=== PATIENT | male | born 1965 | race Caucasian/White ===

== ENCOUNTER → 2018-06-10 08:01 | Outpatient (CLI) | payer OTHER, SELFPAY ==
--- NOTE | 2018-06-10 08:12 | RAD_ITS ---
STUDY: X-RAY - LUMBAR SPINE REASON FOR EXAM: Male, 53 years old. Palpable firm mass right lower lumbar spine TECHNIQUE: 5 view(s) of the lumbar spine were obtained. COMPARISON: None FINDINGS: Normal lumbar lordosis. There is mild dextrocurvature in the lumbar spine. There is a normal alignment of the vertebrae. There is multilevel endplate spondylosis of the lumbar vertebrae. There is multi-level degenerative disc disease with multi-level disc space narrowing. Hypertrophic facet changes are seen. There is no fracture. There is atherosclerotic calcification of the abdominal aorta without a demonstrated aneurysm. RAD/L/S Spine Min 4 Views IMPRESSION: Degenerative changes. No acute bony abnormality. Electronically Signed: Charles Gamboa DO at 9:55 EDT Tel , Service support ,
[2018-06-10 09:06] LABS: Absolute Lymphocyte Count 3.61 X10^3/ul (0.83-4.51); Absolute Neutrophil Count 3.6 X10^3/uL (2.0-7.7); Basophil# 0.03 X10^3/uL; Basophil% 0.4 % (0-1); Eosinophil# 0.15 X10^3/uL; Eosinophils% 1.8 % (0-5); Hematocrit 42.9 % (40-54); Hemoglobin 14.2 g/dl (13.0-16.5); Lymphocyte # 3.61 X10^3/ul (4.0); Lymphocyte % 44.3 % (19-41); Mean Corp Hgb Conc 33.1 g/gl (32-36); Mean Corpuscular Hgb 29.6 pg (27.0-32.0); Mean Corpuscular Volume 89.4 fL (80-94); Mean Platelet Vol. 9.5 fl (6.2-12.0); Monocyte% 8.6 % (0-10); Neutrophil # 3.64 X10^3/uL (2.7-7.7); Neutrophil % 44.7 % (47-70); Platelet Count 333 K/mm3 (150-450); RBC Distribution Width CV 13.2 % (11.6-14.6); White Blood Count 8.2 K/mm3 (4.4-11.0)
[2018-06-10 09:08] LABS: POSITIVE COUNT NO; POSITIVE DIFFERENTIAL NO; POSITIVE MORPHOLOGY NO
[2018-06-10 09:46] LABS: ALB/GLOB Ratio 1.1 RATIO (0.9-2.4); AST(SGOT) 25 U/L (15-37); Alanine Aminotransfer ALT/SGPT 38 U/L (16-61); Albumin, Serum 4.1 g/dL (3.2-5.0); Alkaline Phosphatase 54 U/L (45-117); Anion Gap 7 (5-15); BUN 26 mg/dL (7-18); BUN/Creat Ratio 22.6 RATIO (10-20); Calcium,Total 9.4 mg/dL (8.5-10.1); Chloride 109 mmol/L (98-107); Cholesterol 175 mg/dL (200); Creatinine, Serum 1.15 mg/dL (0.70-1.30); EST Glomerular Filtration Rate 71 mL/min (>60); Est Glom Filt Rate - Afr Amer 86 mL/min (>60); Globulin 3.6 g/dL (2.2-4.2); Glucose 78 mg/dL (74-106); High Density Lipoprotein 46 mg/dL; PSA,Total - Annual Screen 0.78 ng/mL (0.00-4.00); Potassium 3.6 mmol/L (3.5-5.1); Protein, Total 7.7 g/dL (6.4-8.2); Sodium Level 145 mmol/L (136-145); Triglycerides 111 mg/dL; Very Low Density Lipoprotein 22 mg/dL (5-40)
== END ==
PROVIDERS: Family Provider Family Medicine; PCP Family Medicine; Visit Provider Family Medicine
DX: Z00.01 Encounter for general adult medical examination with abnormal findings (principal); E78.5 Hyperlipidemia, unspecified; Z12.5 Encounter for screening for malignant neoplasm of prostate; R22.2 Localized swelling, mass and lump, trunk
CPT/HCPCS: 36415; 72110; 80053; 80061; 84153; 85025; G0103

== ENCOUNTER → 2018-06-11 12:58 | Outpatient (CLI) | payer OTHER, SELFPAY ==
--- NOTE | 2018-06-11 13:05 | CDU_ITS ---
Reason For Study: hyperlipidemia, E78.5, I77.9 Rt. Velocities/BP Lt. Velocities/BP Prox CCA 104/22.9 cm/sec. Prox CCA 125/27.6 cm/sec. Mid CCA 102/26.4 cm/sec. Mid CCA 105/26.4 cm/sec. Dist CCA 95.6/22.9 cm/sec. Dist CCA 104/28.1 cm/sec. Prox ICA 60.4/21.7 cm/sec. Prox ICA 55.1/22.3 cm/sec. Mid ICA 78.0/29.9 cm/sec. Mid ICA 73.9/28.1 cm/sec. Dist ICA 78.6/32.2 cm/sec. Dist ICA 66.3/28.1 cm/sec. Rt. ICA/CCA = .8. Lt. ICA/CCA = .7. Prox ECA 113/19.9 cm/sec. Prox ECA 90.9/24.6 cm/sec. Rt. Vert. 52.2/18.8 cm/sec. Lt. Vert. 45.7/15.8 cm/sec. Right Extracranial There is intimal thickening but no significant atherosclerotic plaque noted in the right common carotid artery. There is intimal thickening but no significant atherosclerotic plaque noted in the right internal carotid artery. There is intimal thickening but no significant atherosclerotic plaque noted in the right external carotid artery. Antegrade flow is noted in the right vertebral artery. Left Extracranial There is intimal thickening but no significant atherosclerotic plaque noted in the left common carotid artery. There is intimal thickening but no significant atherosclerotic plaque noted in the left internal carotid artery. There is intimal thickening but no significant atherosclerotic plaque noted in the left external carotid artery. Antegrade flow is noted in the left vertebral artery. Procedure Carotid Duplex [id number]. The exam was diagnostic. Exam performed in department. Interpretation Summary No significant atherosclerotic plaque or stenosis noted in the internal carotid arteries bilaterally. Flow within the vertebral arteries is antegrade bilaterally. Ordering Physician: Marcelino Barclay Performed By: Nino Rudd RVT
== END ==
PROVIDERS: Family Provider Family Medicine; PCP Family Medicine; Visit Provider Family Medicine
DX: I77.9 Disorder of arteries and arterioles, unspecified (principal); E78.5 Hyperlipidemia, unspecified
CPT/HCPCS: 93880

== ENCOUNTER → 2018-07-02 16:18 | Outpatient (CLI) | payer OTHER, SELFPAY | PROVIDERS: Family Provider Family Medicine; PCP Family Medicine; Visit Provider Family Medicine | DX: R22.2 Localized swelling, mass and lump, trunk (principal) | CPT/HCPCS: 76882 ==

== ENCOUNTER → 2019-11-05 10:25 | Outpatient (CLI) | payer OTHER, SELFPAY ==
[2019-11-05 12:46] LABS: Absolute Lymphocyte Count 2.81 X10^3/uL (0.83-4.51); Absolute Neutrophil Count 2.8 X10^3/uL (2.0-7.7); Basophil# 0.03 X10^3/uL; Basophil% 0.5 % (0-1); Eosinophil# 0.19 X10^3/uL; Hematocrit 42.6 % (40-54); Hemoglobin 13.7 g/dL (13.0-16.5); Lymphocyte # 2.81 X10^3/ul (4.0); Lymphocyte % 44.6 % (19-41); Mean Corp Hgb Conc 32.2 g/dL (32-36); Mean Corpuscular Volume 90.3 fL (80-94); Mean Platelet Vol. 9.6 fl (6.2-12.0); Monocyte# 0.47 X10^3/uL; Monocyte% 7.5 % (0-10); NRBC Flagged by Analyzer 0 % (0-5); Neutrophil # 2.78 X10^3/uL (2.7-7.7); Neutrophil % 44.1 % (47-70); Platelet Count 330 K/mm3 (150-450); RBC Distribution Width SD 42.4 fl (35.1-43.9); Red Blood Count 4.72 M/mm3 (4.6-6.2); White Blood Count 6.3 K/mm3 (4.4-11.0)
[2019-11-05 13:08] LABS: ALB/GLOB Ratio 1.1 RATIO (0.9-2.4); AST(SGOT) 22 U/L (15-37); Alanine Aminotransfer ALT/SGPT 44 U/L (16-61); Alkaline Phosphatase 51 U/L (45-117); Anion Gap 7 (5-15); BUN 19 mg/dL (7-18); BUN/Creat Ratio 17.6 RATIO (10-20); Chloride 109 mmol/L (98-107); Cholesterol 172 mg/dL (200); Creatinine, Serum 1.08 mg/dL (0.70-1.30); EST Glomerular Filtration Rate 76 mL/min (>60); Est Glom Filt Rate - Afr Amer 91 mL/min (>60); Globulin 3.5 g/dL (2.2-4.2); Glucose 88 mg/dL (74-106); High Density Lipoprotein 48 mg/dL; PSA,Total - Annual Screen 0.83 ng/mL (0.00-4.00); Potassium 3.5 mmol/L (3.5-5.1); Protein, Total 7.5 g/dL (6.4-8.2); Sodium Level 142 mmol/L (136-145); Triglycerides 96 mg/dL; Very Low Density Lipoprotein 19 mg/dL (5-40)
== END ==
PROVIDERS: Family Provider Family Medicine; PCP Family Medicine; Visit Provider Family Medicine
DX: Z00.00 Encounter for general adult medical examination without abnormal findings (principal); Z12.5 Encounter for screening for malignant neoplasm of prostate
CPT/HCPCS: 36415; 80053; 80061; 84153; 85025; G0103

== ENCOUNTER → 2021-04-09 10:34 | Outpatient (CLI) | payer OTHER, SELFPAY ==
[2017-06-16 07:13] VITALS: BMI 23.3
[2021-04-09 12:35] LABS: Absolute Lymphocyte Count 2.35 X10^3/uL (0.83-4.51); Absolute Neutrophil Count 2.5 X10^3/uL (2.0-7.7); Basophil# 0.04 X10^3/uL; Basophil% 0.7 % (0-1); Eosinophil# 0.11 X10^3/uL; Hematocrit 42.3 % (40-54); Hemoglobin 13.5 g/dL (13.0-16.5); Lymphocyte # 2.35 X10^3/ul (0.83-4.51); Mean Corp Hgb Conc 31.9 g/dL (32-36); Mean Corpuscular Hgb 29.2 pg (27.0-32.0); Mean Corpuscular Volume 91.4 fL (80-94); Mean Platelet Vol. 9.4 fl (6.2-12.0); Monocyte# 0.48 X10^3/uL; Monocyte% 8.8 % (0-10); NRBC Flagged by Analyzer 0 % (0-5); Neutrophil # 2.47 X10^3/uL (2.7-7.7); Neutrophil % 45.3 % (47-70); Platelet Count 343 K/mm3 (150-450); RBC Distribution Width SD 43.1 fl (35.1-43.9); Red Blood Count 4.63 M/mm3 (4.6-6.2); White Blood Count 5.5 K/mm3 (4.4-11.0)
[2021-04-09 12:55] LABS: ALB/GLOB Ratio 1.1 RATIO (0.9-2.4); AST(SGOT) 19 U/L (15-37); Alanine Aminotransfer ALT/SGPT 30 U/L (16-61); Albumin, Serum 3.8 g/dL (3.2-5.0); Alkaline Phosphatase 61 U/L (45-117); Anion Gap 9 (5-15); BUN 20 mg/dL (7-18); Calcium,Total 8.9 mg/dL (8.5-10.1); Chloride 107 mmol/L (98-107); Cholesterol 149 mg/dL (200); Creatinine, Serum 0.95 mg/dL (0.70-1.30); EST Glomerular Filtration Rate 87 mL/min (>60); Est Glom Filt Rate - Afr Amer 105 mL/min (>60); Globulin 3.4 g/dL (2.2-4.2); Glucose 90 mg/dL (74-106); High Density Lipoprotein 46 mg/dL; PSA,Total - Annual Screen 0.95 ng/mL (0.00-4.00); Potassium 3.8 mmol/L (3.5-5.1); Protein, Total 7.2 g/dL (6.4-8.2); Sodium Level 143 mmol/L (136-145); Triglycerides 64 mg/dL; Very Low Density Lipoprotein 13 mg/dL (5-40)
== END ==
PROVIDERS: PCP Family Medicine; Referring Provider Family Medicine; Visit Provider Family Medicine
DX: Z00.00 Encounter for general adult medical examination without abnormal findings (principal); Z12.5 Encounter for screening for malignant neoplasm of prostate
CPT/HCPCS: 36415; 80053; 80061; 84153; 85025; G0103

== ENCOUNTER → 2022-04-18 | Outpatient (CLI) | payer OTHER, SELFPAY ==
[2022-04-18 12:23] LABS: Absolute Lymphocyte Count 2.33 X10^3/uL (0.83-4.51); Basophil# 0.04 X10^3/uL; Basophil% 0.7 % (0-1); Eosinophil# 0.12 X10^3/uL; Hematocrit 43.7 % (40-54); Hemoglobin 14.1 g/dL (13.0-16.5); Lymphocyte # 2.33 X10^3/ul (0.83-4.51); Lymphocyte % 38.4 % (19-41); Mean Corp Hgb Conc 32.3 g/dL (32-36); Mean Corpuscular Hgb 29.3 pg (27.0-32.0); Mean Corpuscular Volume 90.9 fL (80-94); Mean Platelet Vol. 8.9 fl (6.2-12.0); Monocyte# 0.62 X10^3/uL; Monocyte% 10.2 % (0-10); NRBC Flagged by Analyzer 0 % (0-5); Neutrophil # 2.95 X10^3/uL (2.7-7.7); Neutrophil % 48.5 % (47-70); Platelet Count 300 K/mm3 (150-450); RBC Distribution Width CV 12.9 % (11.6-14.6); RBC Distribution Width SD 42.6 fl (35.1-43.9); Red Blood Count 4.81 M/mm3 (4.6-6.2); White Blood Count 6.1 K/mm3 (4.4-11.0)
[2022-04-18 12:44] LABS: ALB/GLOB Ratio 1.2 RATIO (0.9-2.4); AST(SGOT) 29 U/L (15-37); Alanine Aminotransfer ALT/SGPT 48 U/L (16-61); Albumin, Serum 4.2 g/dL (3.2-5.0); Alkaline Phosphatase 58 U/L (45-117); Anion Gap 5 (5-15); BUN 23 mg/dL (7-18); BUN/Creat Ratio 23.4 RATIO (10-20); Calcium,Total 9.3 mg/dL (8.5-10.1); Chloride 107 mmol/L (98-107); Cholesterol 181 mg/dL (200); Creatinine, Serum 0.98 mg/dL (0.70-1.30); EST Glomerular Filtration Rate 83 mL/min (>60); Est Glom Filt Rate - Afr Amer 101 mL/min (>60); Globulin 3.6 g/dL (2.2-4.2); Glucose 92 mg/dL (74-106); High Density Lipoprotein 47 mg/dL; Protein, Total 7.8 g/dL (6.4-8.2); Sodium Level 139 mmol/L (136-145); Triglycerides 68 mg/dL; Very Low Density Lipoprotein 14 mg/dL (5-40)
== END | disposition home or self-care (01) ==
LOC: MTLAB 10:18
PROVIDERS: PCP Family Medicine; Referring Provider Family Medicine; Visit Provider Family Medicine
DX: Z00.00 Encounter for general adult medical examination without abnormal findings (principal); Z12.5 Encounter for screening for malignant neoplasm of prostate
CPT/HCPCS: 36415; 80053; 80061; 84153; 85025; G0103

== ENCOUNTER 2023-05-20 13:14 | Emergency (ER) | payer OTHER, SELFPAY ==
[2023-05-20] VITALS (7 sets, daily range): BP systolic 79–156; BP diastolic 44–84; PULSE 46–74; RESP 14–16; TEMP 36.6; O2SAT 97–99; BMI 23.7
--- NOTE | 2023-05-20 13:30 | EKG12_ITS ---
Test Reason : Blood Pressure : / mmHG Vent. Rate : 047 BPM Atrial Rate : 047 BPM P-R Int : 158 ms QRS Dur : 082 ms QT Int : 412 ms P-R-T Axes : 062 063 035 degrees QTc Int : 364 ms Sinus bradycardia Otherwise normal ECG When compared with ECG of 20-MAY-2023 13:22, MANUAL COMPARISON REQUIRED, DATA IS UNCONFIRMED Confirmed by GUILLAUME AL, GEORGE ([id number]), communications editor JOELLE HAYWARD ([id number]) on 05/27/2023 7:31:53 AM Referred By: Confirmed By:GEORGE GALAVIZ MD
[2023-05-20 13:54] LABS: Absolute Lymphocyte Count 3.69 X10^3/uL (0.83-4.51); Absolute Neutrophil Count 2.5 X10^3/uL (2.0-7.7); Basophil# 0.05 X10^3/uL; Basophil% 0.7 % (0-1); Eosinophil# 0.17 X10^3/uL; Eosinophils% 2.4 % (0-5); Hematocrit 43.5 % (40-54); Hemoglobin 14.4 g/dL (13.0-16.5); Lymphocyte # 3.69 X10^3/ul (0.83-4.51); Lymphocyte % 52.5 % (19-41); Mean Corp Hgb Conc 33.1 g/dL (32-36); Mean Corpuscular Hgb 29.7 pg (27.0-32.0); Mean Corpuscular Volume 89.7 fL (80-94); Mean Platelet Vol. 9.4 fl (6.2-12.0); Monocyte# 0.64 X10^3/uL; Monocyte% 9.1 % (0-10); NRBC Flagged by Analyzer 0 % (0-5); Neutrophil # 2.46 X10^3/uL (2.7-7.7); Platelet Count 350 K/mm3 (150-450); RBC Distribution Width CV 12.9 % (11.6-14.6); RBC Distribution Width SD 42.4 fl (35.1-43.9); Red Blood Count 4.85 M/mm3 (4.6-6.2)
[2023-05-20] MEDS: Aspirin 81 MG TAB.CHEW 324 MG PO (13:59)
--- NOTE | 2023-05-20 13:59 | CT_ITS ---
EXAM: CT ANGIOGRAPHY CHEST, ABDOMEN AND PELVIS WITH INTRAVENOUS CONTRAST CLINICAL INDICATION: chest pain radiating into left arm, diaphoretic TECHNIQUE: Helically acquired angiography images were obtained of the chest, abdomen and pelvis with intravenous contrast. This CT exam was performed using one or more of the following dose reduction techniques: automated exposure control, adjustment of the mA and/or kV according to patient size, and/or use of iterative reconstruction technique. MIP reconstructed images were created and reviewed. CONTRAST: IV 100mL Isovue-370 RADIATION DOSE: CTDIvol = 12.77 mGy, DLP = 758.35 mGy-cm COMPARISON: No relevant prior studies available. FINDINGS: VASCULATURE: AORTA: There is atherosclerotic calcification of the aortic arch with tortuosity and elongation of the aortic arch and descending thoracic aorta. There are calcifications of the abdominal aorta. This is consistent for atherosclerotic disease. There is no abdominal aortic aneurysm. No dissection. PULMONARY ARTERIES: Unremarkable. No demonstrated pulmonary embolism or arterial dissection. GREAT VESSELS OF AORTIC ARCH: See above. CELIAC TRUNK AND MESENTERIC ARTERIES: Celiac and superior mesenteric arteries: No demonstrated narrowing. Inferior mesenteric artery: No demonstrated narrowing. No dissection. RENAL ARTERIES: Right renal artery(arteries): No demonstrated narrowing. Left renal artery(arteries): No demonstrated narrowing. No dissection. ILIAC ARTERIES: Right common iliac artery: No demonstrated narrowing. Right external iliac artery: No demonstrated narrowing. Right internal iliac artery: No demonstrated narrowing. Left common iliac artery: No demonstrated narrowing. Left external iliac artery: No demonstrated narrowing. Left internal iliac artery: No demonstrated narrowing. No dissection. CHEST: LUNGS AND PLEURAL SPACES: Unremarkable. No mass. No consolidation or edema. No pleural effusion or thickening. No pneumothorax. HEART: There are calcifications of the coronary arteries. Heart size is normal. No pericardial effusion. MEDIASTINUM: Unremarkable. No mediastinal or hilar adenopathy. Esophagus is unremarkable. No hiatal hernia. THYROID: Unremarkable. No thyroid lesions. ABDOMEN: LIVER: Normal liver. GALLBLADDER AND BILE DUCTS: Unremarkable. No calcified gallstones. No gallbladder distention or wall edema. No intra- or extrahepatic biliary ductal dilation. Normal gallbladder and extrahepatic biliary system. PANCREAS: Unremarkable. No focal cystic or solid mass. Normal pancreas. SPLEEN: Unremarkable. Normal spleen. ADRENALS: Unremarkable. Normal bilateral adrenal glands. KIDNEYS AND URETERS: Unremarkable. Normal renal size and position. No hydronephrosis. No acute findings of the right kidney. No acute findings of the left kidney. STOMACH AND BOWEL: Stool throughout the colon. No stomach or bowel distention. No focal inflammatory change. Normal visualized stomach. Normal small intestine. PELVIS: APPENDIX: There is non-visualization of the appendix. BLADDER: Unremarkable. Normal urinary bladder. REPRODUCTIVE: There is enlargement of the prostate gland. CHEST, ABDOMEN and PELVIS: INTRAPERITONEAL SPACE: Unremarkable. No ascites or other fluid collection. No free air. BONES/JOINTS: There are degenerative changes of the shoulders. There are diffuse degenerative changes of the visualized lumbar spine. There is bilateral neural foraminal stenosis at L4-5 and L5-S1. No suspicious lytic or blastic abnormality. SOFT TISSUES: There is an umbilical hernia containing fat. LYMPH NODES: Unremarkable. No enlarged lymph nodes. OTHER FINDINGS: 100 cc of IV. Post-processing of the angiographic images was performed, with axial imaging and 3D reconstruction. MIPS images were obtained. CT/CTA Chst, Abd, Pel W and/or WO IMPRESSION: 1. No demonstrated pulmonary embolism or arterial dissection. 2. There are calcifications of the coronary arteries. Electronically Signed: Richi German MD at 15:04 EDT ,
--- NOTE | 2023-05-20 14:00 | ED.RN ---
RN called to pt's room, pt stating I don't feel right. Pt color pale and ashen, heart rate and blood pressure low. MD notified and at bedside. repeat EKG performed, fluids hung on pressure bag. Pt's vital signs returning to baseline after approx 10-15 min.
--- NOTE | 2023-05-20 14:01 | EDS_ITS ---
HPI History of Present Illness Chief Complaint: Chest Pain Narrative Narrative: Patient is a 58-year-old male who is presenting to the ER with chief complaint of left upper chest pain/tightness that started 2 hours prior to arrival. Patient was at home with family and his grandson. Patient bent down to pick up man his young grandson, and he had a ringing in his right ear as well. Patient was home with his . Patient is very physically fit, he is a high school physical education teacher. Patient does take cholesterol medication. Patient has no cardiac history. Patient is never been a smoker, no cocaine use, only past medical history is cholesterol. No family history at early age of cardiac events. No recent traveling, no trauma, no heavy lifting. Patient's symptoms were rated a 2 or 3/10, and it would only last anywhere from 20 to 30 seconds. It would radiate to his left upper shoulder as well. Patient came into the ER. Patient's and [id number] are at bedside. Patient's [id number] is a nurse as well. Patient is never had a stress test, echocardiogram, or any other advanced testing. Patient was placed in room 20. Initial EKG that was done at 1322 showed no acute findings. Patient had orders placed by myself, I was in another room talking to a patient when nursing staff had pulled me out of the room at approximately 1340 and stated that patient is diaphoretic, hypotensive, bradycardic, does not look well. Second EKG was being done. Patient does admit to being very anxious with subtle things, being OCD and admits to panic attacks as well. When I came into the room, diaphoresis was slightly improving. However patient was still hypotensive with a pressure of the 60s over 40s, heart rate was in the 60s. Patient was given a liter with a pressure bag by nursing staff. Patient's pain was subsiding. Questionable whether patient vasovagal or not. Patient denies any heavy lifting, twisting or turning, no trauma, no other acute complaints. [facility] Medical History (Updated 05/20/23 @ 16:[address] Erick Borrero, ) Hyperlipemia Home Medications fenofibric acid (choline) 135 mg capsule,delayed release (Trilipix) 135 mg PO QHS 06/12/17 [History Last Taken Unknown] simvastatin 20 mg tablet 20 mg PO DAILY 06/12/17 [History Last Taken Unknown] Allergy/AdvReac Type Severity Reaction Status Date / Time Penicillins Allergy Hives Verified 05/20/23 13:17 Social History Smoking Status: Never smoker ROS ROS ED ROS Narrative REVIEW OF SYSTEMS: Unless otherwise stated in this report the patient's positive and negative responses for review of systems for constitutional, eyes, ENT, cardiovascular, respiratory, gastrointestinal, neurological, , musculoskeletal, and integument systems and related systems to the presenting problem are either stated in the history of present illness or were not pertinent or were negative for the symptoms and/or complaints related to the presenting medical problem. EXAM Physical Exam Narrative Exam Narrative: Vital signs reviewed and patient is not hypoxic. This physical exam was done when I initially saw the patient during a possible vasovagal episode. Patient is currently denying any type of pain, shortness of breath or pressure at this time. General: The patient appears slightly anxious and in no apparent distress. Patient is resting uncomfortably on cart. Not toxic, lethargic, or listless. Skin: Warm, diaphoretic, no pallor noted. There is no rash noted. Head: Normocephalic, atraumatic Eye: Normal conjunctiva, no drainage, EOMI. PERRL. Ears, Nose, Mouth, and Throat: oral mucosa is moist. Nares patent. Mouth without vesicles. Cardiovascular: Regular Rate and Rhythm, no murmurs, gallops, or rubs. No reproducible tenderness to palpation to the anterior lateral chest wall or over left anterior chest wall. Respiratory: Patient is in no distress, no accessory muscle use, lungs are clear to auscultation, no wheezing, rales or rhonchi Back: non-tender, no CVA tenderness bilaterally to percussion. NO CTLS midline or paraspinal tenderness to palpation. GI: Soft, no tenderness to palpation, no masses appreciated. No rebound, guarding, or rigidity noted. Musculoskeletal: The patient has full range of motion of all extremities and joints with no difficulty. Patient has no motor, no sensory deficits. Neurological: A&O x4, normal speech, no focal neurological deficits. Psychiatric: Cooperative Const Vital Signs: 05/20/23 13:15 05/20/23 13:19 05/20/23 13:42 Temperature 98 F Temperature Source Temporal Pulse Rate 74 Respiratory Rate 16 Respiratory Effort Normal Non-Labored Blood Pressure 156/84 H Blood Pressure Mean 108 Pulse Ox 99 Oxygen Delivery Method Room Air Room Air 05/20/23 13:42 05/20/23 13:45 05/20/23 13:52 Temperature Temperature Source Pulse Rate 46 L 49 L 64 Respiratory Rate Respiratory Effort Blood Pressure 79/44 L 85/50 L 142/78 H Blood Pressure Mean 55 61 99 Pulse Ox Oxygen Delivery Method 05/20/23 15:00 05/20/23 16:00 Temperature Temperature Source Pulse Rate 64 66 Respiratory Rate 15 14 Respiratory Effort Blood Pressure 123/64 H 129/72 H Blood Pressure Mean 83 91 Pulse Ox 98 99 Oxygen Delivery Method Room Air Room Air MDM MDM MDM Narrative Medical decision making narrative: [id number] I spoken to the interventional radiologist on-call, . Patient may have had a vasovagal syncopal episode, but there was concern because patient was having chest pain/tightness with radiation to left shoulder, also was hypotensive, bradycardic, and was telling the nurses he did not feel well. I reviewed the 2 EKGs with him. He recommended starting patient on a heparin weight-based bolus and drip. I then told him I was going to be doing a CTA of the chest, abdomen pelvis and I would like to wait for the results of that before starting him on a heparin drip and he agreed. Patient will be admitted for further evaluation, Dr. Waggoner had no other recommendations at this time. 1600 Heart Score 2 for age. Patient and his had discussion of admission to the hospital for observation and to rule out acute coronary syndrome. However patient's heart score is only 2, for age and taking cholesterol medication. Patient is very fit and healthy. Patient does not wish to be admitted to the hospital overnight. Patient will follow-up with his PCP in the outpatient basis. Patient is aware that he most likely had a vasovagal episode in the ER, but was given the option for admission in case he was having some type of acute coronary spasm versus or may be some type of blockage that is occurring. Patient understands it is safe to be admitted to the hospital overnight for observation. Shared decision-making was made at bedside with myself, patient and his . Patient does not wish to stay overnight. Patient will follow-up with PCP and return if symptoms return or any other acute concerns. No questions at discharge. 1630 Patient is aware of the recommendations from Dr Waggoner over the initial concern from patient's hypotension, bradycardia, diaphoresis at the recommendation from the leguillon debeader to be admitted to the hospital with IV heparin bolus and drip. Patient states he has had multiple vasovagal episodes in the past. Patient states anytime he sees his blood, he will have a similar reaction. Patient also admits to being very nervous, anxious, having OCD, and having episodes like he did with nursing staff earlier today. Patient understands the concern that we had is the physician and nurses that patient became more symptomatic with not feeling well, bradycardic, hypotensive, and we are concerned for possible STEMI versus other cardiac etiologies. Patient states he has had similar episodes, understands the concern and recommendation for observation overnight, but declines. Patient has functional decision-making capacity to decline admission to the hospital at this time. Lab Data Attestation: I reviewed the patient's lab results. Labs: Laboratory Results - last 24 hr 05/20/23 05/20/23 13:40 15:44 WBC 7.0 RBC 4.85 Hgb 14.4 Hct 43.5 MCV 89.7 MCH 29.7 MCHC 33.1 RDW Std Deviation 42.4 RDW Coeff of Juan R 12.9 Plt Count 350 MPV 9.4 Immature Gran % (Auto) 0.300 Neut % (Auto) 35.0 L Lymph % (Auto) 52.5 H Noble % (Auto) 9.1 Eos % (Auto) 2.4 Baso % (Auto) 0.7 Absolute Neuts (auto) 2.5 Absolute Lymphs (auto) 3.69 Nucleated RBC % 0 D-Dimer Quant (PE/DVT) < 0.27 L Sodium 140 Potassium 3.5 Chloride 107 Carbon Dioxide 28.0 Anion Gap 5 BUN 25 H Creatinine 1.17 Est GFR (MDRD) Af Amer 82 Est GFR (MDRD) Non-Af 68 BUN/Creatinine Ratio 21.4 H Glucose 119 H Calcium 9.7 Magnesium 2.1 Troponin I High Sens < 3 L 4 B-Natriuretic Peptide 2.1 Radiography Diagnostic Testing: Clinical Impression(s) from Imaging Studies Chest/Abdomen/Pelvis CTA 05/20/23 13:59 IMPRESSION: 1. No demonstrated pulmonary embolism or arterial dissection. 2. There are calcifications of the coronary arteries. Electronically Signed: Richi German MD at 15:04 EDT Reading Location ID and State: [facility] / [place] , Service support , CTA of the chest, abdomen pelvis results were discussed at bedside with patient and his , they were given a copy of the report as well. EKG Initial EKG: Attestation: I personally reviewed and interpreted this EKG as follows: Comments: EKG #1. 1322. Normal sinus rhythm at 63 beats a minute. No acute ST elevation, no acute ectopy. QTc of 401. EKG #2. 1339. Sinus bradycardia at 47 beats a minute. Normal axis deviation. QTc of 364. Morphology has changed slightly, but no ST elevation, no acute ectopy. No significant changes when compared to the first EKG. Both these EKGs were discussed with Dr. Waggoner over the phone. Discharge Plan Triage Chief Complaint: Chest Pain ED Provider: Erick Borrero Dx/Rx/DC Orders Clinical Impression: Vasovagal syncopes, Chest pain, Tinnitus Instructions: ED Chest Pain, Noncardiac, ED Chest Pain, Uncertain Cause, Chest Pain O Prescriptions: No Action simvastatin 20 MG tablet 20 mg PO DAILY fenofibric acid (choline) [Trilipix] 135 MG capsule,delayed release(DR/EC) 135 mg PO QHS Primary Care Provider: Marcelino Barclay Referrals: Marcelino Barclay DO [Primary Care Provider] - Activity Restrictions/Additional Instructions: Follow-up with your PCP for outpatient additional cardiac testing of stress test or echocardiogram as discussed. If you continue to have chest pain, tightness, pressure, or anything else continues please return to the ER for reevaluation. You appear to have a episode of vasovagal in the ER today, education was done on this at well on discharge paperwork Disposition Disposition: Home, Self Care
[2023-05-20 14:02] LABS: D-Dimer Quantitative (DVT/PE) < 0.27 FEU/ug/m (0.27-0.49)
[2023-05-20] MEDS: 0.9% Normal Saline 1,000 ML 150 ML IV (14:02)
[2023-05-20 14:07] LABS: Anion Gap 5 (5-15); BUN 25 mg/dL (7-18); BUN/Creat Ratio 21.4 RATIO (10-20); Calcium,Total 9.7 mg/dL (8.5-10.1); Chloride 107 mmol/L (98-107); Creatinine, Serum 1.17 mg/dL (0.70-1.30); EST Glomerular Filtration Rate 68 mL/min (>60); Est Glom Filt Rate - Afr Amer 82 mL/min (>60); Glucose 119 mg/dL (74-106); Magnesium 2.1 mg/dL (1.6-2.6); Potassium 3.5 mmol/L (3.5-5.1); Sodium Level 140 mmol/L (136-145); Troponin-I HS (w/2H Reflex) < 3 pg/mL (3.0-78.0)
[2023-05-20 14:27] LABS: BNP,B-Type NATRIURETIC PEPTIDE 2.1 pg/mL (0-100)
[2023-05-20] MEDS: 0.9% Normal Saline 1,000 ML 999 ML IV (14:42)
[2023-05-20 15:45] LABS: Reflex Troponin-HS? (from REC) Y
[2023-05-20 16:07] LABS: Troponin-I HS 4 pg/mL (3.0-78.0)
== END 2023-05-20 16:42 | disposition home or self-care (01) ==
PROVIDERS: Emergency Provider Emergency Medicine; PCP Family Medicine; Visit Provider Emergency Medicine
DX: R55 Syncope and collapse (principal); R07.9 Chest pain, unspecified; H93.11 Tinnitus, right ear; F42.9 Obsessive-compulsive disorder, unspecified; E78.5 Hyperlipidemia, unspecified
CPT/HCPCS: 71275; 74174; 80048; 83735; 83880; 84484; 85025; 85379; 93005; 96360; 96361; 99284; J7030; J7040; Q9967; A4216

== ENCOUNTER → 2023-05-28 | Outpatient (CLI) | payer OTHER, SELFPAY ==
[2023-05-28 07:55] LABS: Cholesterol 165 mg/dL (200); High Density Lipoprotein 45 mg/dL; Triglycerides 113 mg/dL; Very Low Density Lipoprotein 23 mg/dL (5-40)
--- NOTE | 2023-05-28 12:55 | STE_ITS ---
Reason For Study: CHEST PAIN Stress Results Protocol: Eliezer Protocol Maximum Predicted HR: 162 bpm Target HR: 138 bpm % Maximum Predicted HR: 99 % DurationHeart Rate Stage (mm:ss) (bpm) BP BASELINE 67 140/70 STAGE 1 3:00 90 162/80 STAGE 2 3:00 102 182/62 STAGE 3 3:00 118 178/72 STAGE 4 3:00 141 18/70 STAGE 5 1:00 160 / RECOVERY 89 148/82 Stress Duration: 13:00 mm:ss Maximum Stress HR: 160 bpm Baseline Echocardiogram Findings Stress Echo Wall motion Data Resting WM Intermediate WM Stress WM ECHO/Stress Test Echo w/o Contrast Interpretation Summary This is an exercise stress echo. 58-year-old man with a history of chest pain. Stress EKG. Resting EKG demonstrates normal sinus rhythm with a rate of 68 bpm normal inter vals are noted resting blood pressure is 140/70 mmHg. The patient exercised according to the r egular Eliezer protocol for a total duration of 13 minutes completing 1 minute into stage V of the Bruc e protocol the maximum heart rate was 766 bpm which was 102% of max impacted heart rate the [facility] workload was 17.2 metabolic equivalents. At rest there were no ST or T wave changes noted gomez ggest ischemia and at peak exercise upsloping ST changes were noted we did not meet the criteria for ischemia. The test was terminated due to the target heart rate being achieved the blood pressure a t peak was 182/62 which was normal blood pressure response to exercise. Stress echocardiogram. Stress echocardiographic images were obtained at rest an d with exercise the resting ejection fraction was 60% with a peak ejection fraction of 70%. No wall motion abnormalities were noted. Conclusion: Stress echocardiogram with no EKG or echocardiographic criteria for ischemia at a high workload. Function aerobic capacity. Ordering Physician: Marcelino Barclay Referring Physician: Marcelino Barclay Performed By: Sheryl Flaherty RDCS
== END | disposition home or self-care (01) ==
LOC: CVS 12:54
PROVIDERS: PCP Family Medicine; Referring Provider Family Medicine; Visit Provider Family Medicine
DX: Z00.00 Encounter for general adult medical examination without abnormal findings (principal); R07.9 Chest pain, unspecified; I25.10 Atherosclerotic heart disease of native coronary artery without angina pectoris
CPT/HCPCS: 36415; 80061; 93017; 93350

== ENCOUNTER → 2024-09-20 | Outpatient (CLI) | payer OTHER, SELFPAY ==
[2024-09-20 07:14] LABS: Absolute Lymphocyte Count 4.24 X10^3/uL (0.83-4.51); Absolute Neutrophil Count 3.5 X10^3/uL (2.0-7.7); Basophil# 0.05 X10^3/uL; Basophil% 0.6 % (0-1); Eosinophil# 0.23 X10^3/uL; Eosinophils% 2.6 % (0-5); Hematocrit 43.3 % (40-54); Hemoglobin 14.1 g/dL (13.0-16.5); Lymphocyte # 4.24 X10^3/ul (0.83-4.51); Lymphocyte % 48.3 % (19-41); Mean Corp Hgb Conc 32.6 g/dL (32-36); Mean Corpuscular Hgb 29.7 pg (27.0-32.0); Mean Corpuscular Volume 91.2 fL (80-94); Monocyte# 0.73 X10^3/uL; Monocyte% 8.3 % (0-10); NRBC Flagged by Analyzer 0 % (0-5); Neutrophil # 3.51 X10^3/uL (2.7-7.7); Platelet Count 332 K/mm3 (150-450); RBC Distribution Width CV 12.7 % (11.6-14.6); RBC Distribution Width SD 41.8 fl (35.1-43.9); Red Blood Count 4.75 M/mm3 (4.6-6.2); White Blood Count 8.8 K/mm3 (4.4-11.0)
[2024-09-20 07:44] LABS: ALB/GLOB Ratio 1.2 RATIO (0.9-2.4); AST(SGOT) 23 U/L (15-37); Alanine Aminotransfer ALT/SGPT 30 U/L (16-61); Alkaline Phosphatase 59 U/L (45-117); Anion Gap 5 (5-15); BUN 21 mg/dL (7-18); BUN/Creat Ratio 19.3 RATIO (10-20); Calcium,Total 8.8 mg/dL (8.5-10.1); Chloride 109 mmol/L (98-107); Cholesterol 165 mg/dL (200); Creatinine, Serum 1.09 mg/dL (0.70-1.30); EST Glomerular Filtration Rate 74 mL/min (>60); Est Glom Filt Rate - Afr Amer 89 mL/min (>60); Globulin 3.3 g/dL (2.2-4.2); Glucose 98 mg/dL (74-106); High Density Lipoprotein 49 mg/dL; PSA,Total - Annual Screen 1.31 ng/mL (0.00-4.00); Potassium 3.4 mmol/L (3.5-5.1); Protein, Total 7.3 g/dL (6.4-8.2); Sodium Level 141 mmol/L (136-145); Triglycerides 76 mg/dL; Very Low Density Lipoprotein 15 mg/dL (5-40)
== END | disposition home or self-care (01) ==
LOC: LAB 06:57
PROVIDERS: PCP Family Medicine; Referring Provider Family Medicine; Visit Provider Family Medicine
DX: Z00.00 Encounter for general adult medical examination without abnormal findings (principal); Z12.5 Encounter for screening for malignant neoplasm of prostate
CPT/HCPCS: 36415; 80053; 80061; 84153; 85025; G0103